=== PATIENT | male | born 1965 | race Caucasian/White ===

== ENCOUNTER 2016-05-04 16:05 | Emergency (ER) | payer SELFPAY ==
[2016-05-04] MEDS ORDERED: KETOROLAC 60 MG/2 ML VIAL IM ONE (18:56)
== END 2016-05-04 19:33 | disposition home or self-care (01) ==
LOC: ER 16:05
DX: S16.1XXA Strain of muscle, fascia and tendon at neck level, initial encounter (principal); S20.219A Contusion of unspecified front wall of thorax, initial encounter; S40.012A Contusion of left shoulder, initial encounter; S40.011A Contusion of right shoulder, initial encounter; V49.49XA Driver injured in collision with other motor vehicles in traffic accident, initial encounter; Y92.488 Other paved roadways as the place of occurrence of the external cause; Z79.899 Other long term (current) drug therapy; I10 Essential (primary) hypertension; K21.9 Gastro-esophageal reflux disease without esophagitis; F32.9 Major depressive disorder, single episode, unspecified
CPT/HCPCS: 71020; 72050